=== PATIENT | female | born 1940 | race Caucasian/White ===

== ENCOUNTER → 2017-08-22 18:34 | Outpatient (CLI) | payer MEDICARE, OTHER | END | disposition home or self-care (01) | LOC: D.MAMMO 08-10 11:30 | DX: Z12.31 Encounter for screening mammogram for malignant neoplasm of breast (principal) ==

== ENCOUNTER 2019-05-28 08:48 | Day surgery (SDC) | payer MEDICARE, OTHER ==
[~2019-05-28] VITALS: Ht 167.6 cm; Wt 413.6 kg
--- NOTE | ~2019-05-28 | HP ---
PATIENT: MELINDA RAYA MEDICAL RECORD: [id number] ACCOUNT: [id number] LOCATION:[facility] : 40 ADMISSION DATE: 05/28/19 PCP: LENCHO HARGROVE MD HISTORY AND PHYSICAL EXAMINATION CHIEF COMPLAINT: Polyps. HISTORY OF PRESENT ILLNESS: The patient has a history of gastric polyps. Polyps were noted to be in the antrum and duodenal bulb. She is referred for polypectomy and argon plasma therapy. The risks, possible complications and alternatives to the procedure were explained to the patient. She elects to proceed. HOME MEDICINES: None. ALLERGIES: No known drug allergies. SOCIAL HISTORY: Nonsmoker. PAST MEDICAL AND SURGICAL HISTORY: Hypertension, gastroesophageal reflux, duodenal polyps, gastric polyps. REVIEW OF SYSTEMS: No CVA or seizures. No diabetes or thyroid problems. PHYSICAL EXAMINATION: GENERAL: The patient does not appear acutely ill. She does not appear chronically ill. VITAL SIGNS: Reviewed. EARS: External ears appear normal. EYES: Extraocular movements are intact. NECK: Trachea is midline. CHEST: No intercostal retractions. PULMONARY: Nonlabored, no stridor. IMPRESSION: History of gastric and duodenal polyps. PLAN: Polypectomy utilizing argon plasma bagger and stock handler helper. TRANSINT:[id number] Voice Confirmation ID: [id number] DOCUMENT ID: [id number] JEANNE CABRERA MD CC: LENCHO HARGROVE MD and MANJEET MARC [id number] DICTATION DATE: 05/28/19 1401 LEADERSHIP COACH: 05/28/19 1431 [facility] [address] [id number]
--- NOTE | ~2019-05-28 | OP ---
PATIENT NAME: MELINDA RYAA MEDICAL RECORD: [id number] :40 LOCATION:[facility] ADMISSION DATE: SURGEON: JEANNE CABRERA MD DATE OF OPERATION: 05/28/2019 PREOPERATIVE DIAGNOSES: 1. History of bulbar duodenal polyp. 2. History of gastric antral polyp. POSTOPERATIVE DIAGNOSES: 1. History of bulbar duodenal polyp. 2. History of gastric antral polyp. 3. No evidence of persistence or regrowth of the duodenal polyp. 4. No evidence of regrowth or persistence of the antral polyp. 5. Six new fundal and cardial gastric polyps. PROCEDURES: 1. Esophagogastroduodenoscopy with cold endoscopic biopsies to rule out Helicobacter pylori. 2. Gastric hot biopsy forceps polypectomy within the cardia of the stomach. 3. Endoscopic ablation of gastric polyps with the argon plasma reception clerk times 5. SURGEON: Jeanne Cabrera MD ANIMAL PATHOLOGY TEACHER: None. BLOOD LOSS: Minimal. ANESTHESIA: IV sedation. COMPLICATIONS: None. The risks, possible complications, and alternatives to the procedure were explained to the patient. She elects to proceed. ENDOSCOPIC COURSE: The patient was conveyed to endoscopy suite electively on 05/28/2019. IV sedation was induced by the anesthesia staff. A bite block was inserted. A gastroscope was inserted into the mouth. It was advanced easily into the hypopharynx. The esophagus was easily intubated as were the stomach and duodenum. Upon withdrawal, retroflexed and angulus views were obtained. Antral biopsies were obtained. I then identified one gastric polyp within the cardia of the stomach. This was removed utilizing the hot biopsy forceps polypectomy technique. I could then carefully examine the stomach and duodenum again. I utilized normal imaging as well as narrow band imaging. Five other polyps were noted in the stomach and these were thoroughly ablated utilizing the argon plasma reception clerk, but they were all smaller than 5 mm in size and all were sessile and I did not believe that they required biopsy. There was no further bleeding. The endoscope was then withdrawn under direct vision. I will see the patient in my office in 2-3 weeks. There will be no reason for OPERATIVE REPORT [id number] MELINDA RAYA the patient to have another surveillance upper endoscopy due to these polyps. TRANSINT:[id number] Voice Confirmation ID: [id number] DOCUMENT ID: [id number] JEANNE CABRERA MD CC: LENCHO HARGROVE MD and MANJEET MARC [id number] DICTATION DATE: 05/28/19 1444 MICROSOFT NET DEVELOPER: 05/28/192 [facility] 05/28/[id number] [place] [address]
[2019-05-28 09:35] LABS: HEMATOCRIT 41.2 % (36.0-48.0); HEMOGLOBIN 13.2 g/dL (12-16); MCH 29.7 pg (26.0-34.0); MCV 92.6 fL (80.0-100.0); MEAN PLATELET VOLUME 9.8 fL (7.4-10.4); RBC 4.45 10x6/uL (4.00-5.40); RDW 13.6 % (11.5-14.5); WBC 5.8 10x3/uL (4.8-10.8)
[2019-05-28 09:45] VITALS: BP 129/75; Ht 167.6 cm; Wt 413.6 kg
--- NOTE | 2019-05-28 15:03 | NUR ---
1502 IV DC'D. CATHETER TIP INTACT. NO BLEEDING AT SITE. BANDAID APPLIED.
== END 2019-05-28 15:25 | disposition home or self-care (01) ==
LOC: D.OPS 08:48
PROVIDERS: Anesthesiology; ATTEND Surgery
DX: Z86.010 Personal history of colon polyps (principal); K31.7 Polyp of stomach and duodenum